=== PATIENT | female | born 1980 | race Caucasian/White ===

== ENCOUNTER 2019-07-20 15:05 | Emergency (ER) | payer BC ==
[2019-07-20] MEDS ORDERED: DEXAMETHASONE INJ 10 MG/ML VIAL IM ONE (15:53)
--- NOTE | 2019-07-20 16:17 | ED.PDOC ---
History of Present Illness - General Chief Complaint: Respiratory Problem Stated Complaint: cough, congestion Time Seen by Provider: 07/20/19 15:52 Source: patient, RN notes reviewed, Vital Signs reviewed Exam Limitations: no limitations - History of Present Illness Comments: patient is a 38-year-old white female who presents with complaints of cough, sore throat and difficulty breathing. the pt has had these symptoms x 4 days, and is worsening, the sore throat is burning and scratchy in nature. It is worse with cough. The pain is moderate in nature.patient denies fever, chills, diarrhea, chest pain, nausea, vomiting. Patient has significant sinus drainage. Cough is nonproductive. Timing/Duration: constant, getting worse Cough Quality/Degree: moderate Possible Cause: occasional episodes - every winter Improving Factors: nothing Worsening Factors: other - coughing or deep breath Associated Symptoms: cough, nasal congestion, nasal drainage, sinus infection, sore throat Respiratory Risk Factors: no cause identified Allergies/Adverse Reactions: Allergies Tramadol Adverse Reaction (Mild, Verified 05/06/16 17:21) Other itching Home Medications: Ambulatory Orders Guaifenesin-Codeine [Guaifenesin AC] 10 ml PO Q6H PRN #180 ml 07/20/19 Lidocaine 2% Gel [Xylocaine 2% GEL] 10 ml PO Q6H #120 ml 07/20/19 Pseudoephedrine W/ Codeine-GG [Guaifenesin DAC] 10 ml PO Q6HRS #180 ml 07/20/19 Review of Systems - Review of Systems Constitutional: States: see HPI. Denies: chills, fever EENTM: States: see HPI Respiratory: States: see HPI, cough Cardiology: States: no symptoms reported Gastrointestinal/Abdominal: States: no symptoms reported Genitourinary: States: no symptoms reported Musculoskeletal: States: see HPI, back pain, muscle pain, muscle stiffness Skin: States: no symptoms reported Neurological: States: no symptoms reported Endocrine: States: no symptoms reported Hematologic/Lymphatic: States: no symptoms reported All other Systems: Reviewed and Negative Past Medical History (General) - Patient Medical History Hx Seizures: No Hx Stroke: No Hx Dementia: No Hx Asthma: No Hx of COPD: No Hx Cardiac Disorders: No Hx Congestive Heart Failure: No Hx Pacemaker: No Hx Hypertension: No Hx Thyroid Disease: Yes - hypo Hx Diabetes: No Hx Gastroesophageal Reflux: No Hx Renal Disease: No Hx Cancer: No Hx of HIV: No Hx Hepatitis C: No Hx MRSA: No Surgical History: Hysterectomy - Vaccination History Hx Tetanus, Diphtheria Vaccination: No Hx Influenza Vaccination: Yes Hx Pneumococcal Vaccination: No Immunizations Up to Date: No - Social History Hx Tobacco Use: No Hx Chewing Tobacco Use: No Hx Alcohol Use: Yes Hx Substance Use: No Hx Substance Use Treatment: No Hx Depression: No Hx Physical Abuse: No Hx Emotional Abuse: No Hx Suspected Abuse: No - Female History Patient is a Female of Child Bearing Age (10 -59 yrs old): No Hx Last Menstrual Period: 03/30/16 Patient : No Family Medical History - Family History Mother Family History: No Known Living Status: Still Living Physical Exam - Physical Exam General Appearance: Alert, Anxious, Well Developed, Well Groomed, Well Hydrated, Well Nourished Eye Exam: bilateral normal ENT Exam: hearing grossly normal, TMs normal, pharynx normal, nasal congestion, nasal drainage, other - patient with posterior nasal, no enlargement of the tonsils or tonsillar exudate. 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 Progress - Progress Progress: differential diagnosis: Viral URI, pneumonia, flu, allergic rhinitis among others. 07/20/19 16:21 Patient is slightly improved after IM Decadron. Plan on discharge home with a prescription for some before meals and viscous lidocaine for her sore throat. I have discussed plan of care with the patient she voices understanding and agreement. Christiano Rizo M.D. #[id number] - Results/Orders Results/Orders: chest x-ray does not show any pulmonary infiltrates or consolidation. Chest x- ray is within normal limits. Departure - Departure Clinical Impression: Viral upper respiratory tract infection with cough Disposition: Discharge to Home or Self Care Condition: Good Departure Forms: ED Discharge - Pt. Copy, Patient Portal Self Enrollment Instructions: Viral Upper Respiratory Infection, Adult (DC) Referrals: Reinaldo Perdomo MD [Active Staff] - 1 Week Prescriptions: Pseudoephedrine W/ Codeine-GG [Guaifenesin DAC] 10 ml PO Q6HRS #180 ml Guaifenesin-Codeine [Guaifenesin AC] 10 ml PO Q6H PRN #180 ml PRN Reason: Cough Lidocaine 2% Gel [Xylocaine 2% GEL] 10 ml PO Q6H #120 ml Home Medications: Ambulatory Orders Guaifenesin-Codeine [Guaifenesin AC] 10 ml PO Q6H PRN #180 ml 07/20/19 Lidocaine 2% Gel [Xylocaine 2% GEL] 10 ml PO Q6H #120 ml 07/20/19 Pseudoephedrine W/ Codeine-GG [Guaifenesin DAC] 10 ml PO Q6HRS #180 ml 07/20/19
--- NOTE | 2019-07-20 16:23 | RAD ---
EXAM DESCRIPTION: Chest,2 Views CLINICAL HISTORY: cough COMPARISON: March 20, 2008 FINDINGS: Two-view chest x-ray shows cardiomediastinal silhouette and pulmonary vasculature to be within normal limits. The lungs are normally aerated and clear. Costophrenic angles are sharp. Mild disc degenerative changes of the spine are seen. IMPRESSION: No radiographic evidence of acute cardiopulmonary disease. Electronically signed by: Vickey Vital MD 07/20/2019 4:22 PM [facility]
[2019-07-20 16:45] VITALS: BP 141/90; TEMP 99.8; O2SAT 97
== END 2019-07-20 16:46 | disposition home or self-care (01) ==
LOC: ER 15:05
DX: J06.9 Acute upper respiratory infection, unspecified (principal); E03.9 Hypothyroidism, unspecified; Z79.899 Other long term (current) drug therapy; Z88.5 Allergy status to narcotic agent
CPT/HCPCS: 71046; J1100

== ENCOUNTER 2019-07-27 01:54 | Emergency (ER) | payer BC ==
[2019-07-27] MEDS ORDERED: SODIUM CHLORIDE 0.9% (FLUSH) 10 ML SYG IV PRN (02:06)
[2019-07-27] MEDS ORDERED: IPRATROPIUM/ALBUTEROL 3 ML VIAL INH ONE (02:06)
[2019-07-27] MEDS ORDERED: SODIUM CHLORIDE 0.9% 1000ML 1,000 ML IVS ONE (02:07)
[2019-07-27] MEDS ORDERED: BENZONATATE PERLES 100 MG CAP PO ONE (02:08)
[2019-07-27] MEDS ORDERED: guaiFENesin W/CODEINE LIQ 10 ML UD PO ONE (02:08)
--- NOTE | 2019-07-27 02:13 | ED.PDOC ---
History of Present Illness - General Time Seen by Provider: 07/27/19 01:57 Source: patient - History of Present Illness Initial Comments: 38 yo female who presents with cc of cough. Reports has been having URI-like sx's for about a week - was seen here 07/20 and given a Decadron IM shot and Rx of codeine cough syrup PRN. She states sx's improved for a couple days but have been worsening again past 3-4 days and jam worse past 2 nights. States up all night last night with frequent harsh cough and not able to sleep any tonight either so she came in. Reports harsh coughing fits, occas productive for green sputum, worse with activity, little improvement at rest, taking codeine cough syrup but little improvement. She has had post-tussive emesis x2 this evening. Reports low-grade fever at home, sore throat, frontal headache. Denies abd pain, diarrhea, urinary sx's. Non smoker, no hx of asthma/COPD. Allergies/Adverse Reactions: Allergies Tramadol Adverse Reaction (Mild, Verified 07/27/19 02:12) Other itching Home Medications: Ambulatory Orders Guaifenesin-Codeine [Guaifenesin AC] 10 ml PO Q6H PRN #180 ml 07/20/19 Pseudoephedrine W/ Codeine-GG [Guaifenesin DAC] 10 ml PO Q6HRS #180 ml 07/20/19 RX: Lidocaine 2% Gel [Xylocaine 2% GEL] 10 ml PO Q6H #120 ml 07/20/19 Albuterol Sulfate [Proair Hfa] 2 puff INH Q4H PRN 30 Days #1 inhaler 07/27/19 Guaifenesin-Codeine [Codeine/Guaifenesin 100-10 mg/5Ml] 2 stephie PO Q4H PRN 7 Days #10 stephie 07/27/19 Oseltamivir Capsule [Tamiflu] 75 mg PO BID 5 Days #10 capsule 07/27/19 Review of Systems - Review of Systems Review of Systems: 07/27/19 02:13 as per HPI All other Systems: Reviewed and Negative Past Medical History (General) - Patient Medical History Hx Seizures: No Hx Stroke: No Hx Dementia: No Hx Asthma: No Hx of COPD: No Hx Cardiac Disorders: No Hx Congestive Heart Failure: No Hx Pacemaker: No Hx Hypertension: No Hx Thyroid Disease: Yes - hypo Hx Diabetes: No Hx Gastroesophageal Reflux: No Hx Renal Disease: No Hx Cancer: No Hx of HIV: No Hx Hepatitis C: No Hx MRSA: No - Vaccination History Hx Tetanus, Diphtheria Vaccination: No Hx Influenza Vaccination: Yes Hx Pneumococcal Vaccination: No - Social History Hx Tobacco Use: No Hx Chewing Tobacco Use: No Hx Alcohol Use: Yes Hx Substance Use: No Hx Substance Use Treatment: No Hx Depression: No Hx Physical Abuse: No Hx Emotional Abuse: No Hx Suspected Abuse: No - Female History Hx Last Menstrual Period: 03/30/16 Patient : No Family Medical History - Family History Mother Family History: No Known Living Status: Still Living Physical Exam - Physical Exam General Appearance: Alert, No apparent distress Eye Exam: bilateral normal Ears, Nose, Throat: hearing grossly normal, normal ENT inspection, normal pharynx Neck: non-tender, full range of motion, supple, normal inspection Respiratory: other - frequent harsh cough, crackles along right lung base on auscultation, otherwise moving air well, no apparent wheezing Cardiovascular/Chest: normal peripheral pulses, no edema, no murmur, tachycardia Peripheral Pulses: radial,right: 2+, radial,left: 2+ Gastrointestinal/Abdominal: non tender, soft Back Exam: normal inspection, no CVA tenderness, no vertebral tenderness Extremity: normal range of motion, non-tender, normal inspection, no pedal edema, no calf tenderness, normal capillary refill Neurologic: no motor/sensory deficits, alert, normal mood/affect, oriented x 3 Skin Exam: normal color, warm/dry Progress - Progress Progress: 07/27/19 02:15 Cough -suspect viral URI, consider also PNA vs acute bronchitis vs flu vs strep vs other -obtain labs, CXR, flu, strep -will give trial of Duonebs, Tessalon Perles 200 mg PO, codeine cough syrup 07/27/19 06:16 -Flu B is positive. Will treat with Tamiflu. Ultimately gave morphine 6 mg IV with improved cough. Dc with refill Rx of codeine cough syrup along with PRN albuterol inhaler as she stated it helped with her cough. -dc home in good condition, return warnings discussed Flavio Coy MD Billing #[id number] - Results/Orders Results/Orders: 07/27/19 02:06 IV Care:Saline Lock per Protoc QSHIFT Telemetry .ONCE 07/27/19 02:20 STREP A SCREEN CULTURE Stat Laboratory Results - last 24 hr 07/27/19 07/27/19 07/27/19 02:15 02:20 02:20 WBC 9.7 RBC 4.79 Hgb 13.0 Hct 39.2 MCV 81.8 MCH 27.1 MCHC 33.1 RDW 13.5 Plt Count 353 MPV 6.5 L Absolute Neuts (auto) 6.00 Absolute Lymphs (auto) 2.50 Absolute Monos (auto) 0.80 Absolute Eos (auto) 0.30 Absolute Basos (auto) 0.10 Neutrophils % 61.8 Lymphocytes % 26.1 Monocytes % 7.9 Eosinophils % 3.5 Basophils % 0.7 Sodium 140 Potassium 4.3 Chloride 106 Carbon Dioxide 25 Anion Gap 13.3 BUN 10 Creatinine 0.40 L BUN/Creatinine Ratio 25.0 H Random Glucose 130 H Serum Osmolality 280.2 Calcium 9.7 Group A Strep Rapid Negative - EKG/XRAY/CT XRAY: chest - no acute processes Departure - Departure Clinical Impression: Influenza B Time of Disposition: 04:36 Disposition: Discharge to Home or Self Care Condition: Fair Departure Forms: ED Discharge - Pt. Copy, Patient Portal Self Enrollment Instructions: Flu, Adult (DC) Diet: resume usual diet Activity: increase activity as tolerated Prescriptions: Albuterol Sulfate [Proair Hfa] 2 puff INH Q4H PRN 30 Days #1 inhaler PRN Reason: Wheezing Guaifenesin-Codeine [Codeine/Guaifenesin 100-10 mg/5Ml] 2 stephie PO Q4H PRN 7 Days #10 stephie PRN Reason: Cough Oseltamivir Capsule [Tamiflu] 75 mg PO BID 5 Days #10 capsule Home Medications: Ambulatory Orders Guaifenesin-Codeine [Guaifenesin AC] 10 ml PO Q6H PRN #180 ml 07/20/19 Pseudoephedrine W/ Codeine-GG [Guaifenesin DAC] 10 ml PO Q6HRS #180 ml 07/20/19 RX: Lidocaine 2% Gel [Xylocaine 2% GEL] 10 ml PO Q6H #120 ml 07/20/19 Albuterol Sulfate [Proair Hfa] 2 puff INH Q4H PRN 30 Days #1 inhaler 07/27/19 Guaifenesin-Codeine [Codeine/Guaifenesin 100-10 mg/5Ml] 2 stephie PO Q4H PRN 7 Days #10 stephie 07/27/19 Oseltamivir Capsule [Tamiflu] 75 mg PO BID 5 Days #10 capsule 07/27/19
[2019-07-27] MEDS ORDERED: LIDOCAINE HCL 2% (MOUTH-THROAT) 15 ML UD MT ONE (02:17)
--- NOTE | 2019-07-27 03:29 | RAD ---
EXAM: XR Chest, 2 Views CLINICAL HISTORY: The patient is 38 years old and is Female; severe cough, low-grade fever TECHNIQUE: Frontal and lateral views of the chest. COMPARISON: Chest radiograph July 20, 2019. FINDINGS: LUNGS: Unremarkable. No consolidation. PLEURAL SPACE: Unremarkable. No pneumothorax. HEART: Unremarkable. No cardiomegaly. MEDIASTINUM: Unremarkable. BONES/JOINTS: Unremarkable. IMPRESSION: No acute cardiopulmonary process. Electronically signed by: Joana Christopher MD 07/27/2019 3:28 AM [facility]
[2019-07-27] MEDS ORDERED: MORPHINE SULFATE INJ 10 MG/ML VIAL IV ONE (04:06)
[2019-07-27] MEDS ORDERED: OSELTAMIVIR 75 MG CAP PO ONE (04:07)
[2019-07-27] MEDS ORDERED: IPRATROPIUM/ALBUTEROL 3 ML VIAL NEB ONE (04:07)
[2019-07-27 04:34] VITALS: O2SAT 98
[2019-07-27 05:20] VITALS: BP 162/87; TEMP 98.9
== END 2019-07-27 05:21 | disposition home or self-care (01) ==
LOC: ER 01:54
DX: J10.1 Influenza due to other identified influenza virus with other respiratory manifestations (principal); E03.9 Hypothyroidism, unspecified; Z79.899 Other long term (current) drug therapy; Z88.5 Allergy status to narcotic agent
CPT/HCPCS: 71046; 80048; 85025; 87070; 87502; 87880; 94640; J2270; J7030; J7620

== ENCOUNTER 2019-07-30 17:54 | Emergency (ER) | payer BC ==
[2019-07-30] MEDS ORDERED: SODIUM CHLORIDE 0.9% 1000ML 1,000 ML IVS PRN (18:04)
[2019-07-30] MEDS ORDERED: IPRATROPIUM/ALBUTEROL 3 ML VIAL NEB ONE (18:04)
[2019-07-30] MEDS ORDERED: ALBUTEROL SULFATE 2.5 MG/3 ML VIAL NEB ONE (18:04)
[2019-07-30 18:29] VITALS: O2SAT 95
--- NOTE | 2019-07-30 18:59 | ED.PDOC ---
History of Present Illness - General Chief Complaint: Respiratory Problem Stated Complaint: Cough Time Seen by Provider: 07/30/19 18:04 Source: patient, RN notes reviewed, Vital Signs reviewed, old records - From her previous ED visits. Exam Limitations: no limitations - History of Present Illness Comments: Patient is a 38-year-old white female who presents with complaints of worsening cough and shortness of breath. The cough is unremitting, severe in nature, throat pain is worse when she coughs. The pain is sharp and stabbing in nature. Nothing makes it better. Cough is worse with deep inspiration. Patient denies any headaches, chest pain, fevers, nausea, vomiting, diarrhea. Cough is nonproductive. Timing/Duration: week - 1-1/2 weeks Cough Quality/Degree: severe, dry cough Possible Cause: other - Patient was positive for influenza and is on Tamiflu. Improving Factors: nothing Worsening Factors: other - Deep inspiration Associated Symptoms: cough, fever/chills, nasal drainage, shortness of breath Allergies/Adverse Reactions: Allergies Tramadol Adverse Reaction (Mild, Verified 07/30/19 18:29) Other itching Home Medications: Ambulatory Orders Guaifenesin-Codeine [Guaifenesin AC] 10 ml PO Q6H PRN #180 ml 07/20/19 Lidocaine 2% Gel [Xylocaine 2% GEL] 10 ml PO Q6H #120 ml 07/20/19 Pseudoephedrine W/ Codeine-GG [Guaifenesin DAC] 10 ml PO Q6HRS #180 ml 07/20/19 Albuterol Sulfate [Proair Hfa] 2 puff INH Q4H PRN 30 Days #1 inhaler 07/27/19 Guaifenesin-Codeine [Codeine/Guaifenesin 100-10 mg/5Ml] 2 stephie PO Q4H PRN 7 Days #10 stephie 07/27/19 Oseltamivir Capsule [Tamiflu] 75 mg PO BID 5 Days #10 capsule 07/27/19 predniSONE 60 mg PO DAILY 5 Days #15 tab 07/30/19 Review of Systems - Review of Systems Constitutional: States: see HPI, chills, fever, malaise. Denies: diaphoresis EENTM: States: see HPI, nose congestion, throat pain Respiratory: States: see HPI, cough, orthopnea, short of breath, wheezing Cardiology: States: no symptoms reported. Denies: palpitations, syncope Gastrointestinal/Abdominal: States: no symptoms reported. Denies: abdominal pain, constipation, diarrhea, nausea, vomiting Genitourinary: States: no symptoms reported Musculoskeletal: States: no symptoms reported Skin: States: no symptoms reported Neurological: States: no symptoms reported Endocrine: States: no symptoms reported Hematologic/Lymphatic: States: no symptoms reported All other Systems: Reviewed and Negative Past Medical History (General) - Patient Medical History Hx Seizures: No Hx Stroke: No Hx Dementia: No Hx Asthma: No Hx of COPD: No Hx Cardiac Disorders: No Hx Congestive Heart Failure: No Hx Pacemaker: No Hx Hypertension: No Hx Thyroid Disease: Yes - hypo Hx Diabetes: No Hx Gastroesophageal Reflux: No Hx Renal Disease: No Hx Cancer: No Hx of HIV: No Hx Hepatitis C: No Hx MRSA: No Surgical History: cancer surgery, Hysterectomy - Vaccination History Hx Tetanus, Diphtheria Vaccination: No Hx Influenza Vaccination: Yes Hx Pneumococcal Vaccination: No Immunizations Up to Date: Yes - Social History Hx Tobacco Use: Yes Hx Chewing Tobacco Use: No Hx Alcohol Use: Yes - Rare occasional Hx Substance Use: No Hx Substance Use Treatment: No Hx Depression: No Hx Physical Abuse: No Hx Emotional Abuse: No Hx Suspected Abuse: No - Female History Patient is a Female of Child Bearing Age (10 -59 yrs old): Yes Hx Last Menstrual Period: 03/30/16 Patient : No - Hysterectomy Family Medical History - Family History Mother Family History: No Known Living Status: Hx Family Cancer: Yes Father Living Status: Hx Family Cancer: Yes Physical Exam - Physical Exam General Appearance: Alert, Comfortable, Well Developed, Well Groomed, Well Hydrated, Well Nourished Eye Exam: bilateral normal ENT Exam: normal ENT inspection, hearing grossly normal, pharynx normal Neck: non-tender, full range of motion, supple, normal inspection, trachea midline Respiratory: chest non-tender, no accessory muscle use, rhonchi - Diffusely throughout, other - Unremitting cough Cardiovascular/Chest: normal peripheral pulses, no edema, no gallop, no JVD, no murmur, tachycardia Gastrointestinal/Abdominal: normal bowel sounds, non tender, soft, no organomegaly, no pulsatile mass Extremity: normal range of motion, non-tender, normal inspection 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 07/30/19 21:02 Patient is markedly improved after multiple neb treatments including a nebulized lidocaine. Cough has improved. Plan on discharge home at this time with a prescription for steroids. Have discussed the plan of care with the patient and she voices understanding and agreement. Patient to follow-up with PCP in 3 days. 07/30/19 21:04 We will send a pertussis swab for evaluation for pertussis. - Results/Orders Results/Orders: EXAM DESCRIPTION: X-ray two view chest. CLINICAL HISTORY: 38 years Female, cough COMPARISON: 07/27/2019 and 07/20/2019 TECHNIQUE: PA and Lateral views of the chest performed on 07/30/2019 at 5:56 PM FINDINGS: The lungs are well expanded and are clear. The costophrenic sulci are clear. There is no evidence of a pneumothorax. The cardiac silhouette is normal in size. The mediastinal contours are normal. No acute osseous abnormalities are identified. No focal soft tissue abnormalities are identified. IMPRESSION: No evidence of acute intrathoracic disease. No significant change when compared to the prior studies. Electronically signed by: Mikayla Horner DO 07/30/2019 7:18 PM 07/30/19 18:04 Sodium Chloride 0.9% 1000ML [Ns 1000 ml] 1,000 ml IVS .QD 07/30/19 18:05 Pulse Ox Stat 07/30/19 18:06 Pulse Oximetry Assessment DAILY 07/30/19 18:15 EKG STAT Laboratory Results - last 24 hr 07/30/19 07/30/19 07/30/19 18:15 18:15 18:15 WBC 5.1 RBC 4.66 Hgb 12.3 Hct 38.5 MCV 82.4 MCH 26.4 L MCHC 32.0 L RDW 13.8 Plt Count 239 MPV 6.6 L Absolute Neuts (auto) 2.60 Absolute Lymphs (auto) 1.80 Absolute Monos (auto) 0.50 Absolute Eos (auto) 0.10 Absolute Basos (auto) 0.00 Neutrophils % 51.2 Lymphocytes % 36.2 Monocytes % 10.7 H Eosinophils % 1.2 Basophils % 0.7 Sodium 140 Potassium 3.5 L Chloride 104 Carbon Dioxide 25 Anion Gap 14.5 BUN 11 Creatinine 0.45 L BUN/Creatinine Ratio 24.4 H Random Glucose 113 H Serum Osmolality 279.6 Lactic Acid 1.3 Calcium 9.1 Total Bilirubin 0.3 AST 26 ALT 18 Alkaline Phosphatase 73 Serum Total Protein 7.3 Albumin 3.8 Globulin 3.5 Albumin/Globulin Ratio 1.1 Urine Color Urine Appearance Urine pH Ur Specific Allison Urine Protein Urine Glucose (UA) Urine Ketones Urine Blood Urine Nitrite Urine Bilirubin Urine Urobilinogen Ur Leukocyte Esterase Urine RBC Urine WBC Ur Epithelial Cells Urine Bacteria 07/30/19 19:09 WBC RBC Hgb Hct MCV MCH MCHC RDW Plt Count MPV Absolute Neuts (auto) Absolute Lymphs (auto) Absolute Monos (auto) Absolute Eos (auto) Absolute Basos (auto) Neutrophils % Lymphocytes % Monocytes % Eosinophils % Basophils % Sodium Potassium Chloride Carbon Dioxide Anion Gap BUN Creatinine BUN/Creatinine Ratio Random Glucose Serum Osmolality Lactic Acid Calcium Total Bilirubin AST ALT Alkaline Phosphatase Serum Total Protein Albumin Globulin Albumin/Globulin Ratio Urine Color Yellow Urine Appearance Clear Urine pH 6.5 Ur Specific Allison >= 1.030 Urine Protein Negative Urine Glucose (UA) Negative Urine Ketones 40 H Urine Blood Negative Urine Nitrite Negative Urine Bilirubin Negative Urine Urobilinogen 1.0 Ur Leukocyte Esterase Negative Urine RBC 0 Urine WBC 0-1 Ur Epithelial Cells 3-5 Urine Bacteria Rare Departure - Departure Clinical Impression: Viral upper respiratory tract infection with cough, Cough Time of Disposition: 21:04 Disposition: Discharge to Home or Self Care Condition: Good Departure Forms: ED Discharge - Pt. Copy, Patient Portal Self Enrollment Instructions: Viral Upper Respiratory Infection, Adult (DC) Prescriptions: predniSONE 60 mg PO DAILY 5 Days #15 tab Home Medications: Ambulatory Orders Guaifenesin-Codeine [Guaifenesin AC] 10 ml PO Q6H PRN #180 ml 07/20/19 Lidocaine 2% Gel [Xylocaine 2% GEL] 10 ml PO Q6H #120 ml 07/20/19 Pseudoephedrine W/ Codeine-GG [Guaifenesin DAC] 10 ml PO Q6HRS #180 ml 07/20/19 Albuterol Sulfate [Proair Hfa] 2 puff INH Q4H PRN 30 Days #1 inhaler 07/27/19 Guaifenesin-Codeine [Codeine/Guaifenesin 100-10 mg/5Ml] 2 stephie PO Q4H PRN 7 Days #10 stephie 07/27/19 Oseltamivir Capsule [Tamiflu] 75 mg PO BID 5 Days #10 capsule 07/27/19 predniSONE 60 mg PO DAILY 5 Days #15 tab 07/30/19
--- NOTE | 2019-07-30 19:19 | RAD ---
EXAM DESCRIPTION: X-ray two view chest. CLINICAL HISTORY: 38 years Female, cough COMPARISON: 07/27/2019 and 07/20/2019 TECHNIQUE: PA and Lateral views of the chest performed on 07/30/2019 at 5:56 PM FINDINGS: The lungs are well expanded and are clear. The costophrenic sulci are clear. There is no evidence of a pneumothorax. The cardiac silhouette is normal in size. The mediastinal contours are normal. No acute osseous abnormalities are identified. No focal soft tissue abnormalities are identified. IMPRESSION: No evidence of acute intrathoracic disease. No significant change when compared to the prior studies. Electronically signed by: Mikayla Horner DO 07/30/2019 7:18 PM [facility]
[2019-07-30] MEDS ORDERED: methylPREDNISolone SODIUM SUC 125 MG/2 ML VIAL IV ONE (19:45)
[2019-07-30] MEDS ORDERED: ALBUTEROL SULFATE NEBS (ED DISPENSE) 2.5 MG/3 ML VIAL NEB PRN (20:13)
[2019-07-30] MEDS ORDERED: LIDOCAINE 1% MPF 2 ML VIAL INJ ONE (20:30)
[2019-07-30] MEDS ORDERED: LIDOCAINE 2% 100 MG/5 ML SYG IV ONE (20:34)
[2019-07-30 21:45] VITALS: BP 154/84; TEMP 99.2
== END 2019-07-30 21:10 | disposition home or self-care (01) ==
LOC: ER 17:54
DX: J06.9 Acute upper respiratory infection, unspecified (principal); E03.9 Hypothyroidism, unspecified; Z87.891 Personal history of nicotine dependence; Z79.899 Other long term (current) drug therapy; Z88.8 Allergy status to other drugs, medicaments and biological substances
CPT/HCPCS: 36415; 71046; 80053; 81001; 83605; 85025; 87798; 94640; J2930; J7030; J7611; J7620

== ENCOUNTER → 2020-01-14 | Outpatient (CLI) | payer BC ==
--- NOTE | 2020-01-14 16:09 | US ---
EXAM DESCRIPTION: Soft Tissue,Extremity: ULTRASOUND. CLINICAL HISTORY: 39 years Female LOCALIZED SWELLING MASS AND LUMP UNSP. No known injury. Mild tenderness. Palpable for 7 days. COMPARISON: None Available. TECHNIQUE: Transcutaneous scanning: Steinberg-scale and Doppler modes. FINDINGS: Scanning of the left medial elbow were mass palpable. No dominant soft tissue mass. No distinct cyst. No fluid collection or large calcification. Normal vascularity. IMPRESSION: No sonographic abnormalities medial left elbow at palpable site. Electronically signed by: Jim Geiger MD 01/14/2020 4:07 PM CDT
== END ==
LOC: GMA MATASK 12:59
PROVIDERS: ATTEND Family Medicine
DX: R22.9 Localized swelling, mass and lump, unspecified (principal)

== ENCOUNTER → 2020-01-21 | Outpatient (CLI) | payer BC | LOC: GMA MATASK 10:54 | PROVIDERS: ATTEND Family Medicine | DX: E05.90 Thyrotoxicosis, unspecified without thyrotoxic crisis or storm (principal) ==

== ENCOUNTER → 2020-02-02 | Outpatient (CLI) | payer BC | LOC: GMA MATASK 16:32 | PROVIDERS: ATTEND Family Medicine | DX: E05.90 Thyrotoxicosis, unspecified without thyrotoxic crisis or storm (principal) ==

== ENCOUNTER → 2020-02-17 | Outpatient (CLI) | payer BC ==
--- NOTE | 2020-02-18 11:02 | NM ---
EXAM DESCRIPTION: Thyroid Uptake Scan CLINICAL HISTORY: THYROTOXICOSIS UNSPEC. THYROTOXIC CRISIS OR STORM COMPARISON: [None.] TECHNIQUE: Patient was given 236 uCi of iodine 123 radiopharmaceutical orally. Percentage of activity in the thyroid gland was measured at 5 hr. Activity was again measured at 24 hr. Anterior and oblique gamma camera images also. FINDINGS: 5 hour radiopharmaceutical uptake in the thyroid gland is 20.4%. 24-hour waveforms and uptake in the thyroid gland is also 20.4%. Focal region of increased activity in the lower half of the right lobe on all images. Question of decreased activity in the right side of the isthmus. No abnormal radiopharmaceutical ectopic uptake. IMPRESSION: Elevated 5 hour I-123 radiopharmaceutical uptake equal to the low normal uptake at 24 hours. Suspect an autonomous hyperfunctioning nodule in the lower right lobe. Ultrasound correlation is recommended. Electronically signed by: Jim Geiger MD 02/18/2020 11:00 AM CDT
== END ==
LOC: NM 07:57
PROVIDERS: ATTEND Family Medicine
DX: E05.90 Thyrotoxicosis, unspecified without thyrotoxic crisis or storm (principal); E07.9 Disorder of thyroid, unspecified
CPT/HCPCS: 78012; A9516

== ENCOUNTER → 2020-05-01 | Outpatient (CLI) | payer BC | LOC: GMA MATASK 10:38 | PROVIDERS: ATTEND Family Medicine | DX: E05.90 Thyrotoxicosis, unspecified without thyrotoxic crisis or storm (principal) ==

== ENCOUNTER → 2020-07-25 | Outpatient (CLI) | payer BC | LOC: GMA MATASK 10:25 | PROVIDERS: ATTEND Family Medicine | DX: E05.90 Thyrotoxicosis, unspecified without thyrotoxic crisis or storm (principal) ==